=== PATIENT | male | born 1935 | race Caucasian/White ===

== ENCOUNTER 2023-07-04 15:53 | Emergency (ER) | payer MEDICARE, OTHER ==
[~2023-07-04] VITALS: Ht 177.8 cm; Wt 90.9 kg
[2023-07-04 16:01] VITALS: TEMP 98.3
[2023-07-04 18:18] VITALS: BP 139/68; PULSE 69
== END 2023-07-04 18:40 | disposition home or self-care (01) ==
LOC: COL.ER 15:53
DX: S80.811A Abrasion, right lower leg, initial encounter (principal); S80.812A Abrasion, left lower leg, initial encounter; X58.XXXA Exposure to other specified factors, initial encounter